=== PATIENT | male | born 1985 | race Two or more races ===

== ENCOUNTER 2017-05-30 19:34 | Emergency (ER) | payer SELFPAY ==
[~2017-05-30] VITALS: Ht 170.2 cm; Wt 68.0 kg
[2017-05-30 19:40] VITALS: BP 131/81
== END 2017-05-31 00:39 | disposition home or self-care (01) ==
LOC: ER 19:38
DX: H66.92 Otitis media, unspecified, left ear (principal)
CPT/HCPCS: 70486